=== PATIENT | female | born 1995 | race Caucasian/White ===

== ENCOUNTER 2022-03-20 18:49 | Emergency (ER) | payer OTHER ==
[~2022-03-20] VITALS: Ht 162.6 cm; Wt 104.3 kg
[2022-03-20] MEDS ORDERED: SILVADENE20 GM TOP (21:08)
== END 2022-03-20 21:28 | disposition home or self-care (01) ==
LOC: ED 18:49
DX: T23.261A Burn of second degree of back of right hand, initial encounter (principal); X12.XXXA Contact with other hot fluids, initial encounter
CPT/HCPCS: 99283